=== PATIENT | male | born 1935 | race Caucasian/White ===

== ENCOUNTER 2023-04-04 15:20 | Observation (INO) | payer OTHER, MEDICARE ==
--- NOTE | 2023-04-04 15:56 | RAD REPORT ---
EXAM DESCRIPTION: CT - Ct Stroke Brain Wo Cont - 04/04/2023 3:45 pm CLINICAL HISTORY: Confusion/alteration of awareness COMPARISON: none TECHNIQUE: Computed axial tomography of the head was obtained. All CT scans are performed using dose optimization technique as appropriate and may include automated exposure control or mA/KV adjustment according to patient size. FINDINGS: An intracranial bleed is not seen . The ventricles are normal in caliber. No extra-axial fluid collection is noted. Artifact from a left cochlear implant obscures detail of portions of the left cerebrum. No significan t hypodensity within the brain visualized. Prominent cerebral atrophy is present. Mild opacification of the mastoids. Mild chronic sinusitis IMPRESSION: No acute intracranial abnormality is seen. Dr Sims of the emergency room was notified at 3:51 p.m. on April 04, 2023
[2023-04-04 16:23] LABS: Absolute Lymphocytes (CBC) 1.1 K/uL (0.7-4.9); Hematocrit 34.5 % (39.6-49.0); Lymphocytes % 23.7 % (15.3-44.8); MCV 94.2 fL (80-100); MPV 7.4 fL (7.6-11.3); Platelets 125 thou/uL (152-406); RBC Red Blood Cell Count 3.67 M/uL (4.33-5.43)
[2023-04-04 16:27] LABS: Protime INR 1.05
--- NOTE | 2023-04-04 16:27 | RAD REPORT ---
EXAM DESCRIPTION: Melissa Single View04/04/2023 3:53 pm CLINICAL HISTORY: Chest pain COMPARISON: 2021 FINDINGS: Mild right basilar opacity may be atelectasis Remainder lungs appear clear. Heart is normal size. Lucency beneath the right hemidiaphragm IMPRESSION: Lucency beneath the right hemidiaphragm probably bowel. Pneumoperitoneum can also have t his appearance. If the patient has clinical symptoms to suggest this then a decubitus abdominal film would recommended for further evaluation
[2023-04-04 16:36] LABS: Albumin 3.4 g/dL (3.4-5.0); Bilirubin Direct 0.2 mg/dL (0-0.2); Bilirubin Indirect, Calculated 0.2 mg/dL (0.2-0.8); Bilirubin Total 0.4 mg/dL (0.2-1.0); Magnesium 2.4 mg/dL (1.6-2.4); Protein, Total 6.9 g/dL (6.4-8.2)
[2023-04-04 16:44] LABS: Troponin High Sensitivity 83.1 pg/mL (<58.9)
[2023-04-04 16:59] LABS: Specific Gravity 1.018 (1.005-1.030); Urine Bacteria None Seen /HPF (<20); Urine Bilirubin NEGATIVE (Negative); Urine Blood Negative (Negative); Urine Clarity Clear (Clear); Urine Color Yellow (Yellow); Urine Glucose NEGATIVE (Negative); Urine Mucus Slight /HPF (None Seen); Urine Protein TRACE (Negative); Urine RBC <5 /HPF (None Seen); Urine Urobilinogen Normal (Normal); Urine pH 5.5 (5.0-7.0)
[2023-04-04] MEDS ORDERED: ASPIRIN 81 MG CHEWABLE TABLET ONE (18:33)
[2023-04-04] MEDS ORDERED: FOLIC ACID 5 MG/ML VIAL ONE (18:35)
--- NOTE | 2023-04-04 18:39 | RAD REPORT ---
EXAM DESCRIPTION: Juanita Angio04/04/2023 6:07 pm CLINICAL HISTORY: Stroke-like symptoms. Confusion COMPARISON: None TECHNIQUE: 100 cc Isovue [address] angiogram of the neck was obtained. 3D MIPS reconstruction performed. All CT scans are performed using dose optimization technique as appropriate and may include automated exposure control or mA/KV adjustment according to patient size. FINDINGS: Mild plaque is present within common carotid, internal carotid and external carotid arteri es bilaterally Right vertebral artery is hypoplastic. Mild plaque in the vertebral arteries. No dissection is seen. No high-grade stenosis IMPRESSION: Mild plaque within the carotid and vertebral arteries [place] Mild stenosis 0 to 49 % Moderate stenosis 50-69% Severe stenosis 70-99%
--- NOTE | 2023-04-04 18:39 | RAD REPORT ---
EXAM DESCRIPTION: CTHead angio04/04/2023 6:07 pm CLINICAL HISTORY: Stroke-like symptoms. Confusion COMPARISON: None TECHNIQUE: 100 cc Isovue [address] angiogram of the head was obtained. 3D MIPS reconstruction performed. All CT scans are performed using dose optimization technique as appropriate and may include automated exposure control or mA/KV adjustment according to patient size. FINDINGS: The basilar, anterior cerebral, middle cerebral and posterior cerebral arteries do not dem onstrate a significant abnormality Mild calcified plaque distal internal carotid arteries An aneurysm is not seen A significant stenosis is not noted. No large vessel occlusion IMPRESSION: No significant abnormality is displayed
--- NOTE | 2023-04-04 18:46 | EDPHYS ---
Physician Documentation [facility] Name: Steven Davis Age: 87 yrs Sex: Male : 1935 Arrival Date: 04/04/2023 Time: 15:20 Bed 3 Private MD: ED Physician Juan Sims HPI: 04/04 16:43 This 87 yrs old Male presents to ER via EMS with complaints of altered mental status. sb4 16:55 patient with history of dementia x 7 years. states that she noticed around 0330 sb4 that he was slumped over in a chair and fell over to the right. she is unsure if he caused trauma to his head or shoulder but she states that he has been acting abnormally today- lethargic, not able to walk, difficulty speaking. last known well 2100 last night. Historical: - Allergies: 15:34 Levaquin; me1 - Home Meds: 15:34 multivitamin [Active]; me1 - PSHx: 15:34 left cochlear implant; me1 - Immunization history:: Adult Immunizations unknown. - Social history:: Smoking status: Patient denies any tobacco usage or history of. ROS: 16:55 Unable to obtain ROS due to altered mental status, baseline dementia. sb4 18:46 Constitutional: Negative for fever, chills, and weight loss. sb4 Exam: 17:31 Head/Face: Normocephalic, atraumatic. Eyes: Extra-ocular motions intact. Periorbital sb4 areas with no swelling, redness, or edema. ENT: Mucous membranes moist. Cardiovascular: Regular rate and rhythm with a normal S1 and S2. Respiratory: Lungs have equal breath sounds bilaterally, clear to auscultation and percussion. No rales, rhonchi or wheezes noted. No increased work of breathing, no retractions or nasal flaring. Abdomen/GI: Soft, non-tender, no distension. Skin: Warm, dry with normal turgor. Normal color with no rashes, no lesions, and no evidence of cellulitis. MS/ Extremity: Pulses equal, no cyanosis. Neurovascular intact. Full, normal range of motion. 17:31 Constitutional: The patient appears alert, awake, restless. 17:31 Neuro: Orientation: Not oriented to person, place, time, situation, Mentation: confused, unable to follow commands, Memory: unable to test, the patient has a history of dementia, Cranial nerves: unable to test, the patient has a history of dementia, Cerebellar function: unable to test, the patient has a history of dementia, Motor: is normal, Sensation: unable to test, the patient has a history of dementia. Vital Signs: 15:33 BP 166 / 92; Pulse 82; Resp 16; Temp 97.3(O); Pulse Ox 94% on R/A; Weight 78.93 kg; me1 Height 5 ft. 10 in. ; Pain 0/10; 16:49 BP 149 / 86; Pulse 72; Resp 13; me1 17:51 BP 152 / 80; Pulse 69; Resp 18; Pulse Ox 95% on R/A; ph 19:55 BP 144 / 88; Pulse 76; Resp 16; Pulse Ox 100% on R/A; kd3 20:18 BP 123 / 68; Pulse 72; Resp 16; Pulse Ox 98% on R/A; kd3 21:54 BP 132 / 72; Pulse 81; Resp 19; Pulse Ox 100% on R/A; kd3 15:33 Body Mass Index 24.97 (78.93 kg, 177.8 cm) me1 15:33 Pain Scale: Adult me1 MDM: 15:27 Patient medically screened. sb4 17:33 Differential Diagnosis UTI, CVA, OK, electrolyte abnormality, dehydration, sepsis. sb4 18:43 Data reviewed: vital signs, nurses notes, lab test result(s), EKG, radiologic studies, sb4 I have discussed the patient's presentation/case with the attending Emergency Department Physician; and as a result, I will admit patient. Consideration of Admission/Observation Patient was admitted/placed on observation. Historians other than the Patient: Spouse/Significant Other: . Care significantly affected by the following chronic conditions: dementia. Counseling: I had a detailed discussion with the patient and/or guardian regarding: the historical points, exam findings, and any diagnostic results supporting the discharge/admit diagnosis, the presence of at least one elevated blood pressure reading (>120/80) during this emergency department visit, lab results, radiology results, the need for further work-up and treatment in the hospital. 19:57 Management of patient was discussed with the following: Primary Care Provider: Dr. vidal Kaur. 04/04 15:32 Order name: Basic Metabolic Panel; Complete Time: 16:46 sb4 04/04 15:32 Order name: CBC with Diff; Complete Time: 16:33 sb4 04/04 15:32 Order name: Hepatic Function; Complete Time: 16:46 sb4 04/04 15:32 Order name: High Sensitivity Troponin; Complete Time: 16:46 sb4 04/04 15:32 Order name: Magnesium; Complete Time: 16:46 sb4 04/04 15:32 Order name: Protime (+inr); Complete Time: 16:28 sb4 04/04 15:32 Order name: Ptt, Activated; Complete Time: 16:28 sb4 04/04 15:33 Order name: Urine W/Microscopic (UAM); Complete Time: 17:20 sb4 04/04 16:23 Order name: Glucose, Ancillary Testing; Complete Time: 16:26 EDMS 04/04 15:32 Order name: CT Stroke Brain w/o Contrast; Complete Time: 15:59 sb4 04/04 15:32 Order name: Stroke CXR 1 View; Complete Time: 16:28 sb4 04/04 17:24 Order name: Head Angio CT; Complete Time: 18:42 sb4 04/04 17:24 Order name: Neck Angio CT; Complete Time: 18:42 sb4 04/04 15:32 Order name: EKG; Complete Time: 15:33 sb4 04/04 15:32 Order name: Accucheck; Complete Time: 17:00 sb4 04/04 15:32 Order name: Cardiac monitoring; Complete Time: 15:50 sb4 04/04 15:32 Order name: EKG - Nurse/Tech; Complete Time: 16:08 sb4 04/04 15:32 Order name: IV Saline Lock; Complete Time: 15:51 sb4 04/04 15:32 Order name: Labs collected and sent; Complete Time: 16:07 sb4 04/04 15:32 Order name: NPO; Complete Time: 15:51 sb4 04/04 15:32 Order name: O2 Per Protocol; Complete Time: 15:51 sb4 04/04 15:32 Order name: O2 Sat Monitoring; Complete Time: 15:51 sb4 04/04 15:32 Order name: Stroke Swallow Screen; Complete Time: 18:45 sb4 Administered Medications: 18:30 Drug: foLIC Acid IVPB 1 mg Route: IVPB; Site: right antecubital; me1 18:49 Follow up: IV Status: Completed infusion me1 18:30 Drug: Aspirin PO Chewable Tablet 324 mg Route: PO; me1 18:49 Follow up: Response: No adverse reaction me1 19:34 Drug: Ativan IVP 1 mg Route: IVP; Site: right antecubital; jb4 20:19 Follow up: Response: No adverse reaction; Anxiety decreased kd3 Point of Care Testing: Blood Glucose: 16:12 Blood Glucose: 88 mg/dL; me1 Ranges: Critical Glucose Levels:Adult <50 mg/dl or >400 mg/dl <40 mg/dl or >180 mg/dl Disposition Summary: 04/04/23 18:45 Hospitalization Ordered Hospitalization Status: Inpatient Admission sb4 Provider: Chris Kaur sb4 Location: Telemetry/MedSurg (Inpatient) sb4 Condition: Fair sb4 Problem: new sb4 Symptoms: are unchanged sb4 Bed/Room Type: Standard sb4 Room Assignment: 230(04/04/23 21:42) eb1 Diagnosis - Altered mental status, unspecified sb4 - Subsequent non-ST elevation (NSTEMI) myocardial infarction sb4 Forms: - Medication Reconciliation Form sb4 - SBAR form sb4 - Leadership Thank You Letter sb4 Signatures: Dispatcher [employer] Juan Lugo MD MD [facility] Terrence Pacheco RN RN jb4 Jayde Little RN RN eb1 Shalini Phelps PA-C PADano sb4 Nohemy Morocho RN RN me1 Marina Nolasco RN kd3 Corrections: (The following items were deleted from the chart) 21:42 18:45 sb4 eb1
--- NOTE | 2023-04-04 18:46 | ER ---
Nurse's Notes [facility] Name: Steven Davis Age: 87 yrs Sex: Male : 1935 Arrival Date: 04/04/2023 Time: 15:20 Bed 3 Private MD: Diagnosis: Altered mental status, unspecified;Subsequent non-ST elevation (NSTEMI) myocardial infarction Presentation: 04/04 15:33 Chief complaint: Spouse and/or significant other states: altered mental status. me1 Coronavirus screen: Vaccine status: Patient reports being unvaccinated. At this time, the client does not indicate any symptoms associated with coronavirus-19. Ebola Screen: No symptoms or risks identified at this time. Initial Sepsis Screen: Does the patient meet any 2 criteria? Altered Mental Status. No. Patient's initial sepsis screen is negative. Does the patient have a suspected source of infection? No. Patient's initial sepsis screen is negative. Risk Assessment: Do you want to hurt yourself or someone else? Patient reports no desire to harm self or others. Onset of symptoms was April 04, 2023. 15:33 Method Of Arrival: EMS: [facility] 15:33 Acuity: MOODY 2 me1 Triage Assessment: 15:34 General: Appears comfortable, Behavior is calm, confused, garbled speech, unable to me1 follow commands. Pain: Denies pain. Neuro: Level of Consciousness is awake, alert, confused, confused, garbled speech, unable to follow commands. . Cardiovascular: Capillary refill < 3 seconds Patient's skin is warm and dry. Respiratory: Airway is patent Respiratory effort is even, unlabored, Respiratory pattern is regular, symmetrical. Injury Description: reports patient was sitting in a chair last night and fell out of the chair onto his left side. Unsure if he hit his head. States patient has been lethargic and difficult to wake up at times today. Historical: - Allergies: 15:34 Levaquin; me1 - Home Meds: 15:34 multivitamin [Active]; me1 - PSHx: 15:34 left cochlear implant; me1 - Immunization history:: Adult Immunizations unknown. - Social history:: Smoking status: Patient denies any tobacco usage or history of. Screenin:49 [facility] ED Fall Risk Assessment (Adult) Score/Fall Risk Level 0 - 2 = Low Risk. Abuse me1 screen: Denies threats or abuse. Nutritional screening: No deficits noted. Tuberculosis screening: No symptoms or risk factors identified. 18:45 Cassy Swallow Protocol 3 oz Water Swallow Challenge: Pt able to drink all water without me1 stopping, coughing, choking or throat clearing: Yes. Assessment: 15:49 General: See triage assessment. . me1 16:49 Reassessment: No changes from previously documented assessment. Patient and/or family me1 updated on plan of care and expected duration. Pain level reassessed. 19:55 General: Pt A\T\O x 1. Pt continually trying to get up from the bed. PT is too weak to kd3 stand. Sitter in place.. 20:38 Reassessment: Patient appears in no apparent distress at this time. No changes from jb4 previously documented assessment. Patient and/or family updated on plan of care and expected duration. Pain level reassessed. Pt is much more calm after ativan. Vital Signs: 15:33 BP 166 / 92; Pulse 82; Resp 16; Temp 97.3(O); Pulse Ox 94% on R/A; Weight 78.93 kg; me1 Height 5 ft. 10 in. ; Pain 0/10; 16:49 BP 149 / 86; Pulse 72; Resp 13; me1 17:51 BP 152 / 80; Pulse 69; Resp 18; Pulse Ox 95% on R/A; ph 19:55 BP 144 / 88; Pulse 76; Resp 16; Pulse Ox 100% on R/A; kd3 20:18 BP 123 / 68; Pulse 72; Resp 16; Pulse Ox 98% on R/A; kd3 21:54 BP 132 / 72; Pulse 81; Resp 19; Pulse Ox 100% on R/A; kd3 15:33 Body Mass Index 24.97 (78.93 kg, 177.8 cm) me1 15:33 Pain Scale: Adult me1 ED Course: 15:26 Patient arrived in ED. sb4 15:27 Shal[facility]hel[facility] sb4 15:27 Juan Sims MD is Attending Physician. sb4 15:34 Triage completed. me1 15:34 Arm band placed on Patient placed in an exam room. me1 15:46 CT Stroke Brain w/o Contrast In Process Unspecified. EDMS 15:49 Patient has correct armband on for positive identification. Bed in low position. Call me1 light in reach. Side rails up X2. Provided Education on: POC to . Verbalized understanding. . 15:49 No provider procedures requiring assistance completed. Maintain EMS IV. Dressing me1 intact. Good blood return noted. Site clean \T\ dry. Gauge \T\ site: 20g LAC. 15:55 Stroke CXR 1 View In Process Unspecified. EDMS 16:07 Basic Metabolic Panel Sent. me1 16:07 CBC with Diff Sent. me1 16:07 Hepatic Function Sent. me1 16:08 High Sensitivity Troponin Sent. me1 16:08 Magnesium Sent. me1 16:08 Protime (+inr) Sent. me1 16:08 Ptt, Activated Sent. me1 16:18 Nohemy Morocho, RN is Primary Nurse. me1 16:40 Straight cath inserted, using sterile technique, 16 Fr. Returned lexa urine. Patient ph tolerated well. 16:49 Urine W/Microscopic (UAM) Sent. me1 17:23 Shalini Phelps PA-C is PHCP. sb4 17:49 Inserted saline lock: 20 gauge in right antecubital area, using aseptic technique. ph 18:[address] In Process Unspecified. EDMS 18:[address] In Process Unspecified. EDMS 18:45 Chris Kaur MD is Hospitalizing Provider. sb4 19:56 Cleaned of incontinence. kd3 22:08 Patient admitted, IV remains in place. kd3 Administered Medications: 18:30 Drug: foLIC Acid IVPB 1 mg Route: IVPB; Site: right antecubital; me1 18:49 Follow up: IV Status: Completed infusion me1 18:30 Drug: Aspirin PO Chewable Tablet 324 mg Route: PO; me1 18:49 Follow up: Response: No adverse reaction me1 19:34 Drug: Ativan IVP 1 mg Route: IVP; Site: right antecubital; jb4 20:19 Follow up: Response: No adverse reaction; Anxiety decreased kd3 Medication: 15:49 VIS not applicable for this client. me1 Point of Care Testing: Blood Glucose: 16:12 Blood Glucose: 88 mg/dL; me1 Ranges: Outcome: 18:45 Decision to Hospitalize by Provider. sb4 22:07 Admitted to Med/surg accompanied by tech, room 230. kd3 22:07 Condition: stable 22:07 Discharge instructions given to patient, family, Instructed on the need for admit, Demonstrated understanding of instructions. 22:10 Patient left the ED. kd3 Signatures: Dispatcher [employer] Radha Gomez RN RN ph Bryson, James, RN RN jb4 Marina Nolasco RN RN kd3 Shalini Phelps, PA-C PA-C sb4 Nohemy Morocho RN RN me1
[2023-04-04] MEDS ORDERED: LORazepam 2 MG/ML VIAL ONE (19:41)
[2023-04-04] MEDS ORDERED: ACETAMINOPHEN 500 MG TAB PO PRN (22:08)
[2023-04-04 22:39] VITALS: O2SAT 100
[2023-04-04 23:12] VITALS: BMI 24.8
[2023-04-05] MEDS ORDERED: levETIRAcetam 500 MG TAB PO SCH (09:03)
[2023-04-05 11:32] VITALS: BP 155/63; TEMP 97.2
--- NOTE | 2023-04-05 13:11 | EKG ---
Test Date: 2023-04-04 Test Time: 16:06:10 State Epidemiologist: PH MEASUREMENT RESULTS: Intervals: Rate: 66 TX: 208 QRSD: 110 QT: 400 QTc: 419 [place]: P: 28 TX: 208 QRS: -45 T: 68 INTERPRETIVE STATEMENTS: Normal sinus rhythm Left anterior fascicular block Minimal voltage criteria for LVH, may be normal variant Anterior infarct, age undetermined Abnormal ECG No previous ECG available for comparison Electronically Signed On 04-05-23 13:09:41 CDT by Heraclio Ferreira
--- NOTE | 2023-04-05 17:36 | P.SSS ---
Patient History Date of Service: 04/05/23 Reason for admission: CONFUSION History of Present Illness: MR. BURNS HAS SEVERE DEMENTIA AND IS NOT ABLE TO COMMUNICATE WELL. FAMILY FOUND HIM SLUMPED BUT LATER HE WOKE UP TO HIS BASELINE. I SAW HIM THIS AM, I HAD HIM AMBULATE AND STARTED HIM ON KEPPRA FOR POSSIBLE ATYPICAL SEIZURE THAT IS VERY COMMON IN PATIENTS WITH DEMENTIA. I DID NOT ORDER EEG HE IS ALREADY VERY CONFUSED AND NOT COOPERATIVE. IDEALLY HE SHOULD BE HOME AND WE WILL DISCHARGE HIM WITH STABLE CONDITION. I CALLED IN RX FOR HIM FROM OFFICE. Allergies levofloxacin [From Levaquin] Allergy (Verified 04/04/23 21:26) Anaphylaxis Home medications list reviewed: Yes Physical Examination - Vital Signs Temperature: 97.2 F Blood Pressure: 155/63 Pulse: 60 Respirations: 14 Pulse Ox (%): 95 - Physical Exam General: Demented (NOT ORIENTED -3. ) HEENT: Atraumatic, PERRLA, Mucous membr. moist/pink, EOMI, Sclerae nonicteric Neck: Supple, 2+ carotid pulse no bruit, No LAD, Without JVD or thyroid abnormality Respiratory: Clear to auscultation bilaterally, Normal air movement Cardiovascular: Regular rate/rhythm, Normal S1 S2 Gastrointestinal: Normal bowel sounds, No tenderness Musculoskeletal: No tenderness Integumentary: No rashes Neurological: Normal gait, Normal strength at 5/5 x4 extr, Abnormal speech (NONSENSIBLE. ), Abnormal strength Lymphatics: No axilla or inguinal lymphadenopathy - Diagnosis (Problem(s)) (1) Atypical seizure Status: Acute Plan: THIS IS A CLINICAL DIAGNOSIS. I HAVE SEEN MANY PATIENTS WITH ABSENCE ATTACKS LIKE THIS AND RESPOND WELL TO KEPPRA. WILL START HIM ON SMALL DOSE. WILL FU IN OFFICE. TITRATE DOSE UP IF NEED. (2) Alzheimer disease Status: Acute - Disposition Disposition: ROUTINE DISCHARGE
== END 2023-04-05 13:33 | disposition home or self-care (01) ==
LOC: ER 15:20 → ERHOLD 21:20 → 2ND 22:03
PROVIDERS: ADMIT Internal Medicine; ATTEND Internal Medicine
DX: R56.9 Unspecified convulsions (principal); G30.9 Alzheimer's disease, unspecified; F02.80 Dementia in other diseases classified elsewhere, unspecified severity, without behavioral disturbance, psychotic disturbance, mood disturbance, and anxiety; Z88.6 Allergy status to analgesic agent; Z88.1 Allergy status to other antibiotic agents
CPT/HCPCS: 96365; 93005; 85025; 81001; 80048; 36415; 83735; 85610; 82947; 80076; 85730; 84484; 70496; 70498; 70450; 71045; 51702; 96375; 99285; Q9967